=== PATIENT | female | born 1970 | race Caucasian/White ===

== ENCOUNTER → 2016-11-24 | Outpatient (CLI) | payer BC ==
--- NOTE | 2016-11-24 15:05 | REP ---
Clinical: Contusion. Technique: Single lateral view of the right elbow. Findings: Comminuted nondisplaced fractures involving the proximal ulna are appreciated with overlying soft tissue swelling and joint effusion. Impression: Comminuted nondisplaced fracture of the proximal ulna with swelling and effusion. Signed by Russell Vaughn MD 11/24/2016 02:56 P
== END ==
LOC: M ADAMS 14:32
PROVIDERS: ATTEND Physician Assistant Medical
DX: S50.01XA Contusion of right elbow, initial encounter (principal); W18.30XA Fall on same level, unspecified, initial encounter; Y92.009 Unspecified place in unspecified non-institutional (private) residence as the place of occurrence of the external cause